=== PATIENT | female | born 1990 | race Caucasian/White ===

== ENCOUNTER 2020-07-10 15:29 | Inpatient (IN) | payer OTHER ==
--- NOTE | 2020-07-10 16:02 | BHS.RME ---
"Substance Use & Tx History - Substance Use History Heroin Substance amount: 3-4 bags Frequency of use: Daily Substance route: Inhalation (ex: sniffing or snorting) Date of Last Use: 07/10/20 Cocaine-Crack Substance amount: $20-30 Frequency of use: Daily Substance route: Smoking Date of Last Use: 07/03/20 Other Opiates/Synthetics Substance amount: Percocet 10 mg x 10-20 tabs Frequency of use: Daily Substance route: Oral Date of Last Use: 07/07/20 - Last Treatment Date of last treatment: [facility] 2 y ago Where was last treatment: Detox Physical/Psych/Mental Status - Behavior General Behavior: Increased activity (restlessness, agitation) ([facility] Sameera Brown, 1990 Search Date: 07/10/2020 16:03:52 PM The Drug Utilization Report below displays all of the controlled substance prescriptions, if any, that your patient has filled in the last twelve months. The information displayed on this report is compiled from pharmacy submissions to the Department, and accurately reflects the information as submitted by the pharmacies. This report was requested by: Audra Potter | Reference #: [id number] Others' Prescriptions Patient Name: Sameera Brown Date: 1990 Address: [address] [place] [address] Sex: Female Rx Written Rx Dispensed Drug Quantity Days Supply Prescriber Name 02/27/2020 02/27/2020 oxycodone hcl 5 mg tablet 9 3 Velasquez Montano MD) Eye Contact: Normal - Cooperativeness Cooperativeness: Cooperative - Thinking Thought Processes: Tight Thought content: Future oriented - Physical Health Problems Is patient presently having any pain?: No Does patient presently have any injuries (include location): No Does patient currently have a fever: No"
[2020-07-10 17:48] VITALS: BMI 20.5
--- NOTE | 2020-07-10 17:59 | HP ---
CIWA Score - Admission Criteria OASAS Guidelines: Admission for Medically Managed Detox: Requires at least one of the followin. CIWA greater than 12 2. Seizures within the past 24 hours 3. Delirium tremens within the past 24 hours 4. Hallucinations within the past 24 hours 5. Acute intervention needed for co occurring medical disorder 6. Acute intervention needed for co occurring psychiatric disorder 7. Severe withdrawal that cannot be handled at a lower level of care (continued vomiting, continued diarrhea, abnormal vital signs) requiring intravenous medication and/or fluids 8. Admitting History and Physical - Smoking History Smoking history: Never smoked Admission ROS [facility] Allergies/Adverse Reactions: Allergies Allergy/AdvReac Type Severity Reaction Status Date / Time Penicillins Allergy Verified 07/10/20 17:37 History of Present Illness: 29 y.o female requesting rehab from cocaine use , currently in [facility] 150 mg daily since 1 yr ago . First used 3 yrs ago cocaine - via smoking , latest use " a few days ago " , prior use daily since September 2019 cannabis - daily since age 12 . tobacco : 10/21 ppd PMHx :sickle cell disease ( and 5 yr old son ) [facility] April 2020 latest crisis, hematology @ [address] , DDD L-spine , MDD ( denies SI / HI ) , anxiety , bipolar d/o . psych : olanzapine, mirtazapine, seroquel, benadryl , lexapro rx by psychiatrist @ [facility] , did not bring meds . LMP 6 yrs ago, Norplant SHx : lives w/ and 5-yr old son in own residence . Unemployed , SSD . Exam Limitations: No Limitations - Review of Systems Constitutional: Loss of Appetite, Unintentional Wgt. Loss (20 lbs in < 1 month) EENT: reports: No Symptoms Reported Respiratory: reports: No Symptoms reported Cardiac: reports: No Symptoms Reported GI: reports: Constipated (x 1 week), Poor Appetite : reports: No Symptoms Reported, Other (hesitancy) Musculoskeletal: reports: Back Pain (chronic , reports RFA q 3 months), Joint Pain (generalized pain) Integumentary: reports: No Symptoms Reported Neuro: reports: No Symptoms reported Endocrine: reports: No Symptoms Reported Hematology: reports: See HPI, Other (SCD) Psychiatric: reports: Orientated x3, Agitated, Depressed Patient History - Patient Medical History Hx Asthma: No Hx Chronic Obstructive Pulmonary Disease (COPD): No Hx Cardiac Disorders: No Hx Hypertension: No Hx Seizures: No Hx Diabetes: No Hx Gastrointestinal Disorders: Yes Hx Sexually Transmitted Disorders: No Hx Renal Disease (ESRD): No Hx Depression: Yes - Patient Surgical History Past Surgical History: Yes Hx Abdominal Surgery: Yes (GASTRIC SLEEVE IN 2013) - Smoking Cessation Smoking history: Never smoked - Substances abused Cocaine Substance route: Inhalation Frequency: 3-6 times per week Amount used: 5 to 10 bags Age of first use: 26 Date of last use: 07/07/20 Heroin Substance route: Inhalation Frequency: Daily Amount used: 2 bags Age of first use: 29 Date of last use: 07/10/20 Admission Physical Exam BHS - Vital Signs Vital Signs: Vital Signs - 24 hr 07/10/20 17:42 Temperature 97.6 F Pulse Rate 106 H Respiratory 12 Rate Blood Pressure 107/76 - Physical General Appearance: Yes: No Apparent Distress HEENTM: Yes: EOMI, Hearing grossly Normal, Normocephalic, Normal Voice Respiratory: Yes: Chest Non-Tender, Lungs Clear, Normal Breath Sounds, No Respiratory Distress, No Accessory Muscle Use Neck: Yes: No masses,lesions,Nodules, Trachea in good position Cardiology: Yes: Regular Rhythm, Regular Rate, S1, S2 Abdominal: Yes: Normal Bowel Sounds, Protuberent, Distended, Tenderness (LLQ) Musculoskeletal: Yes: Gait Steady Extremities: Yes: Normal Range of Motion, Non-Tender Neurological: Yes: Alert, Motor Strength 5/5, Depressed Affect Integumentary: Yes: Warm - Diagnostic (1) Opioid dependence on agonist therapy Current Visit: Yes Status: Chronic (2) Cannabis dependence Current Visit: Yes Status: Chronic (3) History of crack cocaine use Current Visit: Yes Status: Suspected (4) Nicotine use disorder Current Visit: Yes Status: Chronic Breathalyzer - Breathalyzer Breathalyzer: 0 Urine Drug Screen - Test Device Lot number: [id number] Expiration date: 05/21/22 - Control Is test valid?: Yes - Results Drug screen NEGATIVE: No Urine drug screen results: THC-Marijuana, MTD-Methadone Inpatient Rehab Admission - Rehab Decision to Admit Inpatient rehab admission?: Yes - Initial Determination Are CD services needed?: Yes Free of communicable disease: Yes Not in need of hospitalization: Yes - Rehab Admission Criteria Previous failed treatment: No Poor recovery environment: No Comorbidities: No Lacks judgement: Yes Patient is meeting Inpatient Rehab admission criteria:: Yes
[2020-07-10] MEDS ORDERED: MAGNESIUM HYDROX 2400MG/30ML ORAL SUSPENSION 30 ML CUP PO PRN (18:19)
[2020-07-10] MEDS ORDERED: LOPERAMIDE HCL 2 MG CAPSULE PO PRN (18:19)
[2020-07-10] MEDS ORDERED: MAGNESIUM CITRATE 300 ML BOTTLE PO PRN (18:19)
[2020-07-10] MEDS ORDERED: MAG HYDROX/AL HYDROX/SIMETH 30 ML UNIT-DOSE CUP PO PRN (18:19)
[2020-07-10] MEDS ORDERED: P-EPHED 60MG/TRIPROLIDI 2.5MG TABLET PO PRN (18:19)
[2020-07-10] MEDS ORDERED: guaiFENesin 200 MG/10 ML 10 ML UNIT-DOSE CUPS PO PRN (18:19)
[2020-07-10] MEDS ORDERED: diphenhydrAMINE HCL 50 MG CAPSULE PO ONE (18:21)
[2020-07-10] MEDS ORDERED: GABAPENTIN 400 MG CAPSULE PO ONE (18:22)
[2020-07-10] MEDS ORDERED: TUBERCULIN PPD 5 TU/0.1ML VIAL ID ONE (19:26)
--- OUTSIDE RECORDS SUMMARY | 2020-07-10 19:57 | XMS ---
:1990 [facility] Support Name Relationship Address Phone UE Unavailable Unavailable Unavailable DAKSHA TALAMANTES [address] [phone] [place] [address] Re-disclosure Warning The records that you are about to access may contain information from federally- assisted alcohol or drug abuse programs. If such information is present, then the following federally mandated warning applies: This information has been disclosed to you from records protected by federal confidentiality rules (42 CFR part 2). The federal rules prohibit you from making any further disclosure of this information unless further disclosure is expressly permitted by the written consent of the person to whom it pertains or as otherwise permitted by 42 CFR part 2. A general authorization for the release of medical or other information is NOT sufficient for this purpose. The Federal rules restrict any use of the information to criminally investigate or prosecute any alcohol or drug abuse patient.The records that you are about to access may contain highly sensitive health information, the redisclosure of which is protected by Article 27-F of the [facility] Public Health law. If you continue you may haveaccess to information: Regarding HIV / AIDS; Provided by facilities licensed or operated by the [facility] Office of Mental Health; or Provided by the [facility] Office for People With Developmental Disabilities. If such information is present, then the following [facility] mandated warning applies: This information has been disclosed to you from confidential records which are protected by state law. State law prohibits you from making any further disclosure of this information without the specific written consent of the person to whom it pertains, or as otherwise permitted by law. Any unauthorized further disclosure in violation of state law may result in a fine or assisted sentence or both. A general authorization for the release of medical or other information is NOT sufficient authorization for further disclosure. Insurance Providers Payer name Policy type Policy ID Covered Covered democrat's Policy P nolvia / Coverage democrat ID relationship to Marte Inf ormation type marte MEDICAID [id number] SP [id number]
[2020-07-10] MEDS: hydrOXYzine PAMOATE 25 MG CAPSULE (FP) PO PRN (20:08)
[2020-07-10] MEDS: ACETAMINOPHEN 325 MG TABLET (FP) PO PRN (20:34)
[2020-07-10] MEDS: THIAMINE HCL 100 MG TABLET (FP) PO SCH (21:31)
[2020-07-10] MEDS ORDERED: DOCUSATE SODIUM 100 MG CAPSULE (FP) PO SCH (22:00)
[2020-07-10] MEDS ORDERED: MELATONIN 5 MG TABLETS PO SCH (22:00)
[2020-07-11] MEDS ORDERED: NAPROXEN 500 MG TABLET PO PRN (08:41)
[2020-07-11] MEDS ORDERED: GABAPENTIN 400 MG CAPSULE PO PRN (08:41)
[2020-07-11] MEDS ORDERED: METHADONE HCL 10 MG TABLET PO SCH (08:45)
[2020-07-11] MEDS ORDERED: METHADONE HCL 40 MG DISPERSABLE TABLET ONE (09:00)
[2020-07-11] MEDS ORDERED: METHADONE HCL 10 MG TABLET ONE (09:01)
[2020-07-11] MEDS: METHADONE 120 MG, METHADONE 30 MG PO SCH (09:23)
[2020-07-11] MEDS: PRENATAL VITAMINS W/ FOLIC ACID TABLET (FP) PO SCH (09:24)
[2020-07-11] MEDS: hydrOXYzine PAMOATE 25 MG CAPSULE (FP) PO PRN ×2 (09:24→18:36)
[2020-07-11 10:54] LABS: HEMATOCRIT 30.5 % (32.4-45.2); HEMOGLOBIN 9.2 GM/dL (10.7-15.3); MCHC 30.3 g/dl (32.0-36.0); MEAN CELL VOLUME 63.4 fl (80-96); PLATELET COUNT 380 K/MM3 (134-434); RDW 21.9 % (11.6-15.6); WHITE BLOOD COUNT 6.6 K/mm3 (4.0-10.0)
[2020-07-11 11:02] LABS: ALBUMIN 3.4 g/dl (3.4-5.0); BILIRUBIN,TOTAL 0.4 mg/dL (0.2-1); BLOOD UREA NITROGEN 11.7 mg/dL (7-18); CALCIUM 9.1 mg/dL (8.5-10.1); CREATININE 0.9 mg/dL (0.55-1.3); POTASSIUM 4.8 mmol/L (3.5-5.1); TOT PROT 7.3 g/dl (6.4-8.2)
[2020-07-11 11:04] LABS: MCH 19.2 pg (25.7-33.7)
[2020-07-11 11:19] LABS: SICKLE CELL SCREEN NEGATIVE (NEGATIVE)
[2020-07-11] MEDS ORDERED: PNEUMOCOCCAL 23 VACCINE 0.5 ML VIAL IM ONE (12:00)
[2020-07-11] MEDS ORDERED: PNEUMOC 13-VAL CONJ-DIP CRM/PF 0.5 ML DISP.SYRIN IM ONE (12:00)
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
[2020-07-11 14:34] LABS: EPI CELLS >36 /uL (0-25.1); HYALINE CASTS 1 /uL (0-3.1); URINE APPEARANCE CLEAR; URINE BACTERIA 814 /uL (0-1359); URINE BILIRUBIN NEGATIVE (NEGATIVE); URINE COLOR YELLOW; URINE GLUCOSE (UA) NEGATIVE (NEGATIVE); URINE KETONE NEGATIVE (NEGATIVE); URINE LEUK ESTERASE 1+ (NEGATIVE); URINE NITRITE NEGATIVE (NEGATIVE); URINE PROTEIN NEGATIVE (NEGATIVE); URINE RBC 1 /uL (0-23.9); URINE UROBILINOGEN 0.2 mg/dL (0.2-1.0); URINE WBC 15 /uL (0-25.8)
[2020-07-11] MEDS: ESCITALOPRAM OXALATE 20 MG TABLET PO SCH (14:51)
[2020-07-11] MEDS: ACETAMINOPHEN 325 MG TABLET (FP) PO PRN (19:15)
[2020-07-11] MEDS: THIAMINE HCL 100 MG TABLET (FP) PO SCH (21:19)
[2020-07-11] MEDS: MIRTAZAPINE 30 MG TABLET PO SCH (21:20)
[2020-07-11] MEDS: MELATONIN 5 MG TABLETS PO SCH (21:20)
[2020-07-11] MEDS: OLANZapine 10 MG TABLET PO SCH (21:20)
[2020-07-11] MEDS: QUEtiapine FUMARATE 100 MG TABLET (FP) PO SCH (21:20)
[2020-07-12] MEDS ORDERED: METHADONE HCL 40 MG DISPERSABLE TABLET ONE (03:09)
[2020-07-12] MEDS ORDERED: METHADONE HCL 10 MG TABLET ONE (03:10)
[2020-07-12] MEDS: METHADONE 120 MG, METHADONE 30 MG PO SCH (06:02)
[2020-07-12] MEDS: PRENATAL VITAMINS W/ FOLIC ACID TABLET (FP) PO SCH (09:30)
[2020-07-12] MEDS: ESCITALOPRAM OXALATE 20 MG TABLET PO SCH (09:30)
--- NOTE | 2020-07-12 09:51 | PN ---
[facility] Progress Note Note: Patient seen for c/o dysuria, urinary frequency and retention. States after having multiple abdominal surgeries she has to "push urine out". Patient denies fever, pelvic and back pain. Vital Signs Temperature 97.1 F L 07/12/20 06:01 Pulse Rate 99 H 07/12/20 06:01 Respiratory Rate 16 07/12/20 06:01 Blood Pressure 122/84 07/12/20 06:01 O2 Sat by Pulse Oximetry (%) 95 07/12/20 06:01 Laboratory Tests 07/10/20 07/10/20 07/11/20 16:10 17:33 07:50 WBC 6.6 RBC 4.80 Hgb 9.2 L Hct 30.5 L MCV 63.4 L MCH 19.2 L MCHC 30.3 L RDW 21.9 H Plt Count 380 MPV 9.0 Sickle Cell Screen Negative Sodium Potassium Chloride Carbon Dioxide Anion Gap BUN Creatinine Est GFR (CKD-EPI)AfAm Est GFR (CKD-EPI)NonAf Random Glucose Calcium Total Bilirubin AST ALT Alkaline Phosphatase Total Protein Albumin Urine Color Urine Appearance Urine pH Ur Specific Court[place] Urine Protein Urine Glucose (UA) Urine Ketones Urine Blood Urine Nitrite Urine Bilirubin Urine Urobilinogen Ur Leukocyte Esterase Urine WBC (Auto) Urine RBC (Auto) Urine Casts (Auto) U Epithel Cells (Auto) Urine Bacteria (Auto) POC Urine HCG, Qual Negative Syphilis Serology SARS-CoV-2 (PCR) Negative 07/11/20 07/11/20 07/11/20 07:50 07:50 09:45 WBC RBC Hgb Hct MCV MCH MCHC RDW Plt Count MPV Sickle Cell Screen Sodium 140 Potassium 4.8 Chloride 104 Carbon Dioxide 29 Anion Gap 7 L BUN 11.7 Creatinine 0.9 Est GFR (CKD-EPI)AfAm 98.75 Est GFR (CKD-EPI)NonAf 85.20 Random Glucose 160 H Calcium 9.1 Total Bilirubin 0.4 AST 22 ALT 15 Alkaline Phosphatase 64 Total Protein 7.3 Albumin 3.4 Urine Color Yellow Urine Appearance Clear Urine pH 7.0 Ur Specific Court[place] 1.012 Urine Protein Negative Urine Glucose (UA) Negative Urine Ketones Negative Urine Blood Negative Urine Nitrite Negative Urine Bilirubin Negative Urine Urobilinogen 0.2 Ur Leukocyte Esterase 1+ H Urine WBC (Auto) 15 Urine RBC (Auto) 1 Urine Casts (Auto) 1 U Epithel Cells (Auto) >36 Urine Bacteria (Auto) 814 POC Urine HCG, Qual Syphilis Serology Non-reactive SARS-CoV-2 (PCR) PE: alert and oriented x 3 skin warm and dry In nad gi nt, nd, flat neg cvat ext full rom, amb ad christ no tremors A/P: Dysuria Urinary retention UA appreciated will treat with Bactrim/Pyridium due to symptoms oral fluids encouraged continue to monitor clinically
[2020-07-12] MEDS: SULFAMETHOXAZOLE/TRIMETHOPRIM 800MG/160MG D.S. TABLET PO SCH ×2 (10:38→21:27)
[2020-07-12] MEDS: PHENAZOPYRIDINE HCL 100 MG TABLET (FP) PO SCH ×2 (14:49→21:25)
[2020-07-12] MEDS: hydrOXYzine PAMOATE 25 MG CAPSULE (FP) PO PRN ×2 (16:22→21:27)
[2020-07-12] MEDS: QUEtiapine FUMARATE 100 MG TABLET (FP) PO SCH (21:26)
[2020-07-12] MEDS: THIAMINE HCL 100 MG TABLET (FP) PO SCH (21:26)
[2020-07-12] MEDS: OLANZapine 10 MG TABLET PO SCH (21:26)
[2020-07-12] MEDS: GABAPENTIN 400 MG CAPSULE PO PRN (21:26)
[2020-07-12] MEDS: MELATONIN 5 MG TABLETS PO SCH (21:27)
[2020-07-12] MEDS: MIRTAZAPINE 30 MG TABLET PO SCH (21:27)
[2020-07-13] MEDS ORDERED: METHADONE HCL 10 MG TABLET ONE (05:27)
[2020-07-13] MEDS ORDERED: METHADONE HCL 40 MG DISPERSABLE TABLET ONE (05:27)
[2020-07-13] MEDS: METHADONE 120 MG, METHADONE 30 MG PO SCH (06:22)
[2020-07-13] MEDS: hydrOXYzine PAMOATE 25 MG CAPSULE (FP) PO PRN ×3 (06:32→17:25)
[2020-07-13] MEDS: PHENAZOPYRIDINE HCL 100 MG TABLET (FP) PO SCH ×3 (09:40→22:42)
[2020-07-13] MEDS: ESCITALOPRAM OXALATE 20 MG TABLET PO SCH (09:40)
[2020-07-13] MEDS: SULFAMETHOXAZOLE/TRIMETHOPRIM 800MG/160MG D.S. TABLET PO SCH ×2 (09:40→21:42)
[2020-07-13] MEDS: PRENATAL VITAMINS W/ FOLIC ACID TABLET (FP) PO SCH (09:40)
[2020-07-13] MEDS: MIRTAZAPINE 30 MG TABLET PO SCH (21:42)
[2020-07-13] MEDS: QUEtiapine FUMARATE 100 MG TABLET (FP) PO SCH (21:42)
[2020-07-13] MEDS: THIAMINE HCL 100 MG TABLET (FP) PO SCH (21:42)
[2020-07-13] MEDS: OLANZapine 10 MG TABLET PO SCH (21:42)
[2020-07-13] MEDS: MELATONIN 5 MG TABLETS PO SCH (21:43)
[2020-07-13] MEDS: GABAPENTIN 400 MG CAPSULE PO PRN (22:42)
[2020-07-14] MEDS ORDERED: METHADONE HCL 40 MG DISPERSABLE TABLET ONE (05:33)
[2020-07-14] MEDS ORDERED: METHADONE HCL 10 MG TABLET ONE (05:33)
[2020-07-14] MEDS: hydrOXYzine PAMOATE 25 MG CAPSULE (FP) PO PRN ×4 (06:41→21:16)
[2020-07-14] MEDS: METHADONE 120 MG, METHADONE 30 MG PO SCH (06:41)
[2020-07-14] MEDS ORDERED: PT OWN MED DRAWER 7, Y5N ONE ×2 (09:01→21:03)
[2020-07-14] MEDS: PHENAZOPYRIDINE HCL 100 MG TABLET (FP) PO SCH (09:29)
[2020-07-14] MEDS: ESCITALOPRAM OXALATE 20 MG TABLET PO SCH (10:29)
[2020-07-14] MEDS: SULFAMETHOXAZOLE/TRIMETHOPRIM 800MG/160MG D.S. TABLET PO SCH ×2 (10:29→21:15)
[2020-07-14] MEDS: PRENATAL VITAMINS W/ FOLIC ACID TABLET (FP) PO SCH (10:34)
[2020-07-14] MEDS: GABAPENTIN 400 MG CAPSULE PO PRN (18:05)
[2020-07-14] MEDS: QUEtiapine FUMARATE 100 MG TABLET (FP) PO SCH (21:15)
[2020-07-14] MEDS: OLANZapine 10 MG TABLET PO SCH (21:15)
[2020-07-14] MEDS: THIAMINE HCL 100 MG TABLET (FP) PO SCH (21:16)
[2020-07-14] MEDS: MELATONIN 5 MG TABLETS PO SCH (21:16)
[2020-07-14] MEDS: MIRTAZAPINE 30 MG TABLET PO SCH (21:16)
[2020-07-15] MEDS ORDERED: METHADONE HCL 10 MG TABLET ONE (03:26)
[2020-07-15] MEDS ORDERED: METHADONE HCL 40 MG DISPERSABLE TABLET ONE (03:26)
[2020-07-15] MEDS: METHADONE 120 MG, METHADONE 30 MG PO SCH (06:03)
[2020-07-15] MEDS: NAPROXEN 500 MG TABLET PO PRN ×2 (06:03→19:27)
[2020-07-15] MEDS: BENZOCAINE 20 % GEL TUBE MM PRN (06:03)
[2020-07-15] MEDS: hydrOXYzine PAMOATE 25 MG CAPSULE (FP) PO PRN ×2 (06:03→10:17)
[2020-07-15] MEDS ORDERED: ESCITALOPRAM OXALATE 10 MG TABLET ONE (08:52)
[2020-07-15] MEDS: ESCITALOPRAM OXALATE 20 MG TABLET PO SCH (10:17)
[2020-07-15] MEDS: PRENATAL VITAMINS W/ FOLIC ACID TABLET (FP) PO SCH (10:17)
[2020-07-15] MEDS: GABAPENTIN 400 MG CAPSULE PO PRN (10:19)
[2020-07-15] MEDS ORDERED: PNEUMOC 13-VAL CONJ-DIP CRM/PF 0.5 ML DISP.SYRIN IM ONE (12:00)
--- NOTE | 2020-07-15 15:08 | PN ---
S Progress Note Note: Patient reports feeling anxious despite taking Vistaril 25 mg po Q 4hrs prn. Requests to increase Vistaril dosage to 50 mg po Q4 hrs prn.
[2020-07-15] MEDS: hydrOXYzine PAMOATE 50 MG CAPSULE (FP) PO PRN (15:52)
[2020-07-15] MEDS: OLANZapine 10 MG TABLET PO SCH (21:01)
[2020-07-15] MEDS: THIAMINE HCL 100 MG TABLET (FP) PO SCH (21:01)
[2020-07-15] MEDS: MIRTAZAPINE 30 MG TABLET PO SCH (21:01)
[2020-07-15] MEDS: QUEtiapine FUMARATE 100 MG TABLET (FP) PO SCH (21:02)
[2020-07-15] MEDS: MELATONIN 5 MG TABLETS PO SCH (21:02)
[2020-07-16] MEDS ORDERED: METHADONE HCL 10 MG TABLET ONE (03:21)
[2020-07-16] MEDS ORDERED: METHADONE HCL 40 MG DISPERSABLE TABLET ONE (03:21)
[2020-07-16] MEDS: METHADONE 120 MG, METHADONE 30 MG PO SCH (06:01)
[2020-07-16] MEDS: hydrOXYzine PAMOATE 50 MG CAPSULE (FP) PO PRN ×2 (06:01→09:52)
[2020-07-16] MEDS: PRENATAL VITAMINS W/ FOLIC ACID TABLET (FP) PO SCH (09:52)
[2020-07-16] MEDS: ESCITALOPRAM OXALATE 20 MG TABLET PO SCH (09:52)
--- NOTE | 2020-07-16 14:01 | PN ---
[facility] Progress Note Note: Patient reports feeling anxious despite taking Seroquel 100 mg/hs and Vistaril 50 mg po nQ 4hrs prn. She requests to take Seroquel 100 mg/bid. Seroquel dosage is increased to 100 mg/bid
[2020-07-16] MEDS: QUEtiapine FUMARATE 100 MG TABLET (FP) PO SCH ×3 (14:15→21:02)
[2020-07-16] MEDS: GABAPENTIN 400 MG CAPSULE PO PRN ×2 (15:38→21:24)
[2020-07-16] MEDS: MELATONIN 5 MG TABLETS PO SCH (21:01)
[2020-07-16] MEDS: THIAMINE HCL 100 MG TABLET (FP) PO SCH (21:01)
[2020-07-16] MEDS: MIRTAZAPINE 30 MG TABLET PO SCH (21:02)
[2020-07-16] MEDS: OLANZapine 10 MG TABLET PO SCH (21:03)
[2020-07-17] MEDS ORDERED: METHADONE HCL 10 MG TABLET ONE (03:13)
[2020-07-17] MEDS ORDERED: METHADONE HCL 40 MG DISPERSABLE TABLET ONE (03:13)
[2020-07-17] MEDS: hydrOXYzine PAMOATE 50 MG CAPSULE (FP) PO PRN ×4 (06:23→19:09)
[2020-07-17] MEDS: METHADONE 120 MG, METHADONE 30 MG PO SCH (06:23)
[2020-07-17] MEDS: PRENATAL VITAMINS W/ FOLIC ACID TABLET (FP) PO SCH (09:55)
[2020-07-17] MEDS: GABAPENTIN 400 MG CAPSULE PO PRN ×3 (09:55→19:09)
[2020-07-17] MEDS: ESCITALOPRAM OXALATE 20 MG TABLET PO SCH (09:55)
[2020-07-17] MEDS: QUEtiapine FUMARATE 100 MG TABLET (FP) PO SCH ×3 (09:56→21:07)
[2020-07-17] MEDS: NAPROXEN 500 MG TABLET PO PRN (15:51)
[2020-07-17] MEDS: OLANZapine 10 MG TABLET PO SCH (21:06)
[2020-07-17] MEDS: THIAMINE HCL 100 MG TABLET (FP) PO SCH (21:06)
[2020-07-17] MEDS: MIRTAZAPINE 30 MG TABLET PO SCH (21:06)
[2020-07-17] MEDS: MELATONIN 5 MG TABLETS PO SCH (21:08)
[2020-07-18] MEDS ORDERED: METHADONE HCL 40 MG DISPERSABLE TABLET ONE (05:25)
[2020-07-18] MEDS ORDERED: METHADONE HCL 10 MG TABLET ONE (05:26)
[2020-07-18] MEDS: METHADONE 120 MG, METHADONE 30 MG PO SCH (06:14)
[2020-07-18] MEDS: GABAPENTIN 400 MG CAPSULE PO PRN ×2 (10:17→17:04)
[2020-07-18] MEDS: PRENATAL VITAMINS W/ FOLIC ACID TABLET (FP) PO SCH (10:17)
[2020-07-18] MEDS: hydrOXYzine PAMOATE 50 MG CAPSULE (FP) PO PRN ×3 (10:18→21:01)
[2020-07-18] MEDS: ESCITALOPRAM OXALATE 20 MG TABLET PO SCH (10:18)
[2020-07-18] MEDS: QUEtiapine FUMARATE 100 MG TABLET (FP) PO SCH ×2 (10:18→21:01)
[2020-07-18] MEDS ORDERED: MIRTAZAPINE 15 MG TABLET (FP) ONE (19:13)
[2020-07-18] MEDS: THIAMINE HCL 100 MG TABLET (FP) PO SCH (21:01)
[2020-07-18] MEDS: MIRTAZAPINE 30 MG TABLET PO SCH (21:01)
[2020-07-18] MEDS: OLANZapine 10 MG TABLET PO SCH (21:01)
[2020-07-18] MEDS: MELATONIN 5 MG TABLETS PO SCH (21:02)
[2020-07-19] MEDS ORDERED: METHADONE HCL 10 MG TABLET ONE (06:04)
[2020-07-19] MEDS ORDERED: METHADONE HCL 40 MG DISPERSABLE TABLET ONE (06:04)
[2020-07-19] MEDS: METHADONE 120 MG, METHADONE 30 MG PO SCH (06:43)
[2020-07-19] MEDS: ESCITALOPRAM OXALATE 20 MG TABLET PO SCH (10:01)
[2020-07-19] MEDS: QUEtiapine FUMARATE 100 MG TABLET (FP) PO SCH ×2 (10:01→21:23)
[2020-07-19] MEDS: PRENATAL VITAMINS W/ FOLIC ACID TABLET (FP) PO SCH (10:01)
[2020-07-19] MEDS ORDERED: ONDANSETRON *ODT* 4 MG TABLET SL PRN (11:08)
--- NOTE | 2020-07-19 11:10 | PN ---
[facility] Progress Note Note: nurse gem called to report patient c/o upset stomach, nausea/vomited this morning and anxiety. Pt taking a nap at this time. Vital Signs - 24 hr 07/18/20 07/18/20 07/19/20 13:24 20:41 06:00 Temperature 97.3 F L Pulse Rate 89 Respiratory 16 Rate Blood Pressure 90/66 O2 Sat by Pulse 99 100 97 Oximetry (%) 07/19/20 09:10 Temperature 98.2 F Pulse Rate 108 H Respiratory 18 Rate Blood Pressure 100/67 O2 Sat by Pulse 97 Oximetry (%) On Vistaril 50 mg po Q4h prn for anxiety when awake Increase po fluids as tolerated Zofran odt prn as directed for n/v. follow up with pt's progress.
[2020-07-19] MEDS: GABAPENTIN 400 MG CAPSULE PO PRN ×2 (12:42→21:23)
[2020-07-19] MEDS: hydrOXYzine PAMOATE 50 MG CAPSULE (FP) PO PRN (12:43)
[2020-07-19] MEDS ORDERED: PT OWN MED DRAWER 7, Y5N ONE (17:42)
[2020-07-19] MEDS: NAPROXEN 500 MG TABLET PO PRN (17:43)
[2020-07-19] MEDS: BENZOCAINE 20 % GEL TUBE MM PRN (17:44)
[2020-07-19] MEDS ORDERED: MIRTAZAPINE 15 MG TABLET (FP) ONE (19:51)
[2020-07-19] MEDS: OLANZapine 10 MG TABLET PO SCH (21:23)
[2020-07-19] MEDS: THIAMINE HCL 100 MG TABLET (FP) PO SCH (21:24)
[2020-07-19] MEDS: MELATONIN 5 MG TABLETS PO SCH (21:24)
[2020-07-19] MEDS: MIRTAZAPINE 30 MG TABLET PO SCH (21:24)
[2020-07-20] MEDS ORDERED: METHADONE HCL 10 MG TABLET ONE (03:14)
[2020-07-20] MEDS ORDERED: METHADONE HCL 40 MG DISPERSABLE TABLET ONE (03:14)
[2020-07-20] MEDS: METHADONE 120 MG, METHADONE 30 MG PO SCH (06:49)
[2020-07-20] MEDS: hydrOXYzine PAMOATE 50 MG CAPSULE (FP) PO PRN ×3 (06:52→21:25)
[2020-07-20] MEDS: PRENATAL VITAMINS W/ FOLIC ACID TABLET (FP) PO SCH (09:19)
[2020-07-20] MEDS: QUEtiapine FUMARATE 100 MG TABLET (FP) PO SCH ×2 (09:19→21:21)
[2020-07-20] MEDS: ESCITALOPRAM OXALATE 20 MG TABLET PO SCH (09:19)
[2020-07-20] MEDS: GABAPENTIN 400 MG CAPSULE PO PRN ×2 (17:45→21:26)
[2020-07-20] MEDS ORDERED: MIRTAZAPINE 15 MG TABLET (FP) ONE (21:02)
[2020-07-20] MEDS: OLANZapine 10 MG TABLET PO SCH (21:21)
[2020-07-20] MEDS: THIAMINE HCL 100 MG TABLET (FP) PO SCH (21:21)
[2020-07-20] MEDS: MELATONIN 5 MG TABLETS PO SCH (21:21)
[2020-07-20] MEDS: MIRTAZAPINE 30 MG TABLET PO SCH (21:22)
[2020-07-21] MEDS ORDERED: METHADONE HCL 10 MG TABLET ONE (03:12)
[2020-07-21] MEDS ORDERED: METHADONE HCL 40 MG DISPERSABLE TABLET ONE (03:12)
[2020-07-21] MEDS: METHADONE 120 MG, METHADONE 30 MG PO SCH (06:32)
[2020-07-21] MEDS: PRENATAL VITAMINS W/ FOLIC ACID TABLET (FP) PO SCH (09:38)
[2020-07-21] MEDS: ESCITALOPRAM OXALATE 20 MG TABLET PO SCH (09:38)
[2020-07-21] MEDS: QUEtiapine FUMARATE 100 MG TABLET (FP) PO SCH ×2 (09:38→21:08)
[2020-07-21] MEDS: GABAPENTIN 400 MG CAPSULE PO PRN ×2 (09:40→17:57)
[2020-07-21] MEDS ORDERED: PT OWN MED DRAWER 7, Y5N ONE (12:47)
[2020-07-21] MEDS: NAPROXEN 500 MG TABLET PO PRN ×2 (12:48→17:57)
[2020-07-21] MEDS: ACETAMINOPHEN 325 MG TABLET (FP) PO PRN ×2 (14:53→21:30)
[2020-07-21] MEDS: hydrOXYzine PAMOATE 50 MG CAPSULE (FP) PO PRN (14:53)
[2020-07-21] MEDS: BENZOCAINE 20 % GEL TUBE MM PRN (14:54)
[2020-07-21] MEDS: OLANZapine 10 MG TABLET PO SCH (21:07)
[2020-07-21] MEDS: THIAMINE HCL 100 MG TABLET (FP) PO SCH (21:08)
[2020-07-21] MEDS: diphenhydrAMINE HCL 50 MG CAPSULE PO PRN (21:09)
[2020-07-21] MEDS: MELATONIN 5 MG TABLETS PO SCH (21:09)
[2020-07-21] MEDS: MIRTAZAPINE 30 MG TABLET PO SCH (21:09)
[2020-07-22] MEDS ORDERED: METHADONE HCL 40 MG DISPERSABLE TABLET ONE (03:18)
[2020-07-22] MEDS ORDERED: METHADONE HCL 10 MG TABLET ONE (03:18)
[2020-07-22] MEDS: ACETAMINOPHEN 325 MG TABLET (FP) PO PRN ×2 (06:44→18:14)
[2020-07-22] MEDS: METHADONE 120 MG, METHADONE 30 MG PO SCH (06:45)
[2020-07-22] MEDS: BENZOCAINE 20 % GEL TUBE MM PRN (08:57)
[2020-07-22] MEDS ORDERED: PT OWN MED DRAWER 7, Y5N ONE ×3 (08:58→23:12)
[2020-07-22] MEDS: ESCITALOPRAM OXALATE 20 MG TABLET PO SCH (09:54)
[2020-07-22] MEDS: PRENATAL VITAMINS W/ FOLIC ACID TABLET (FP) PO SCH (09:54)
[2020-07-22] MEDS: QUEtiapine FUMARATE 100 MG TABLET (FP) PO SCH ×2 (09:54→21:05)
[2020-07-22] MEDS: NAPROXEN 500 MG TABLET PO PRN ×2 (09:56→16:32)
[2020-07-22] MEDS: GABAPENTIN 400 MG CAPSULE PO PRN ×2 (09:57→16:34)
[2020-07-22] MEDS: hydrOXYzine PAMOATE 50 MG CAPSULE (FP) PO PRN (13:54)
[2020-07-22] MEDS ORDERED: MIRTAZAPINE 15 MG TABLET (FP) ONE (19:08)
[2020-07-22] MEDS: THIAMINE HCL 100 MG TABLET (FP) PO SCH (21:04)
[2020-07-22] MEDS: MIRTAZAPINE 30 MG TABLET PO SCH (21:05)
[2020-07-22] MEDS: OLANZapine 10 MG TABLET PO SCH (21:05)
[2020-07-22] MEDS ORDERED: diphenhydrAMINE HCL 25 MG CAPSULE (FP) PO ONE (21:06)
[2020-07-22] MEDS: MELATONIN 5 MG TABLETS PO SCH (21:06)
[2020-07-22] MEDS: diphenhydrAMINE HCL 50 MG CAPSULE PO PRN (21:07)
[2020-07-23] MEDS ORDERED: METHADONE HCL 40 MG DISPERSABLE TABLET ONE (05:46)
[2020-07-23] MEDS ORDERED: METHADONE HCL 10 MG TABLET ONE (05:46)
[2020-07-23] MEDS: METHADONE 120 MG, METHADONE 30 MG PO SCH (06:08)
[2020-07-23] MEDS ORDERED: PT OWN MED DRAWER 7, Y5N ONE ×2 (09:44→16:35)
[2020-07-23] MEDS: QUEtiapine FUMARATE 100 MG TABLET (FP) PO SCH ×2 (09:45→21:11)
[2020-07-23] MEDS: NAPROXEN 500 MG TABLET PO PRN (09:45)
[2020-07-23] MEDS: BENZOCAINE 20 % GEL TUBE MM PRN (09:45)
[2020-07-23] MEDS: ESCITALOPRAM OXALATE 20 MG TABLET PO SCH (09:45)
[2020-07-23] MEDS: PRENATAL VITAMINS W/ FOLIC ACID TABLET (FP) PO SCH (09:45)
[2020-07-23] MEDS: hydrOXYzine PAMOATE 50 MG CAPSULE (FP) PO PRN (14:27)
[2020-07-23] MEDS: GABAPENTIN 400 MG CAPSULE PO PRN (14:27)
[2020-07-23] MEDS ORDERED: MIRTAZAPINE 15 MG TABLET (FP) ONE (18:47)
[2020-07-23] MEDS: diphenhydrAMINE HCL 50 MG CAPSULE PO PRN (21:11)
[2020-07-23] MEDS: OLANZapine 10 MG TABLET PO SCH (21:11)
[2020-07-23] MEDS: THIAMINE HCL 100 MG TABLET (FP) PO SCH (21:11)
[2020-07-23] MEDS: MIRTAZAPINE 30 MG TABLET PO SCH (21:12)
[2020-07-23] MEDS: MELATONIN 5 MG TABLETS PO SCH (21:12)
[2020-07-24] MEDS ORDERED: METHADONE HCL 40 MG DISPERSABLE TABLET ONE (06:27)
[2020-07-24] MEDS ORDERED: METHADONE HCL 10 MG TABLET ONE (06:27)
[2020-07-24] MEDS: METHADONE 120 MG, METHADONE 30 MG PO SCH (06:33)
[2020-07-24] MEDS: ESCITALOPRAM OXALATE 20 MG TABLET PO SCH (09:36)
[2020-07-24] MEDS: PRENATAL VITAMINS W/ FOLIC ACID TABLET (FP) PO SCH (09:36)
[2020-07-24] MEDS: QUEtiapine FUMARATE 100 MG TABLET (FP) PO SCH ×2 (09:36→21:23)
[2020-07-24] MEDS: GABAPENTIN 400 MG CAPSULE PO PRN (09:37)
[2020-07-24] MEDS ORDERED: PT OWN MED DRAWER 7, Y5N ONE ×2 (14:01→16:22)
[2020-07-24] MEDS: NAPROXEN 500 MG TABLET PO PRN (14:02)
[2020-07-24] MEDS: ACETAMINOPHEN 325 MG TABLET (FP) PO PRN (16:23)
[2020-07-24] MEDS: BENZOCAINE 20 % GEL TUBE MM PRN (16:23)
[2020-07-24] MEDS ORDERED: MIRTAZAPINE 15 MG TABLET (FP) ONE (19:15)
[2020-07-24] MEDS ORDERED: diphenhydrAMINE HCL 25 MG CAPSULE (FP) PO ONE (19:15)
[2020-07-24] MEDS: OLANZapine 10 MG TABLET PO SCH (21:22)
[2020-07-24] MEDS: THIAMINE HCL 100 MG TABLET (FP) PO SCH (21:22)
[2020-07-24] MEDS: MIRTAZAPINE 30 MG TABLET PO SCH (21:24)
[2020-07-24] MEDS: MELATONIN 5 MG TABLETS PO SCH (21:25)
[2020-07-25] MEDS ORDERED: METHADONE HCL 40 MG DISPERSABLE TABLET ONE (03:55)
[2020-07-25] MEDS ORDERED: METHADONE HCL 10 MG TABLET ONE (03:55)
[2020-07-25] MEDS: METHADONE 120 MG, METHADONE 30 MG PO SCH (07:08)
[2020-07-25] MEDS: ESCITALOPRAM OXALATE 20 MG TABLET PO SCH (09:55)
[2020-07-25] MEDS: QUEtiapine FUMARATE 100 MG TABLET (FP) PO SCH ×2 (09:55→21:19)
[2020-07-25] MEDS: PRENATAL VITAMINS W/ FOLIC ACID TABLET (FP) PO SCH (09:55)
[2020-07-25] MEDS: NAPROXEN 500 MG TABLET PO PRN (09:56)
[2020-07-25] MEDS: GABAPENTIN 400 MG CAPSULE PO PRN ×2 (15:55→21:19)
[2020-07-25] MEDS: hydrOXYzine PAMOATE 50 MG CAPSULE (FP) PO PRN (17:05)
[2020-07-25] MEDS: ACETAMINOPHEN 325 MG TABLET (FP) PO PRN (17:05)
[2020-07-25] MEDS ORDERED: MIRTAZAPINE 15 MG TABLET (FP) ONE (19:19)
[2020-07-25] MEDS: THIAMINE HCL 100 MG TABLET (FP) PO SCH (21:16)
[2020-07-25] MEDS: diphenhydrAMINE HCL 50 MG CAPSULE PO PRN (21:17)
[2020-07-25] MEDS: OLANZapine 10 MG TABLET PO SCH (21:17)
[2020-07-25] MEDS: MELATONIN 5 MG TABLETS PO SCH (21:18)
[2020-07-25] MEDS: MIRTAZAPINE 30 MG TABLET PO SCH (21:18)
[2020-07-26] MEDS ORDERED: METHADONE HCL 10 MG TABLET ONE (03:18)
[2020-07-26] MEDS ORDERED: METHADONE HCL 40 MG DISPERSABLE TABLET ONE (03:18)
[2020-07-26] MEDS: METHADONE 120 MG, METHADONE 30 MG PO SCH (06:51)
[2020-07-26] MEDS: PRENATAL VITAMINS W/ FOLIC ACID TABLET (FP) PO SCH (09:53)
[2020-07-26] MEDS: ESCITALOPRAM OXALATE 20 MG TABLET PO SCH (09:53)
[2020-07-26] MEDS: QUEtiapine FUMARATE 100 MG TABLET (FP) PO SCH ×2 (09:53→21:18)
[2020-07-26] MEDS: NAPROXEN 500 MG TABLET PO PRN ×2 (09:54→17:07)
[2020-07-26] MEDS ORDERED: PT OWN MED DRAWER 7, Y5N ONE ×2 (09:54→17:07)
[2020-07-26] MEDS: ACETAMINOPHEN 325 MG TABLET (FP) PO PRN (14:13)
[2020-07-26] MEDS: hydrOXYzine PAMOATE 50 MG CAPSULE (FP) PO PRN ×2 (14:13→22:29)
[2020-07-26] MEDS: BENZOCAINE 20 % GEL TUBE MM PRN (17:07)
[2020-07-26] MEDS ORDERED: MIRTAZAPINE 15 MG TABLET (FP) ONE (19:34)
[2020-07-26] MEDS: THIAMINE HCL 100 MG TABLET (FP) PO SCH (21:17)
[2020-07-26] MEDS: OLANZapine 10 MG TABLET PO SCH (21:18)
[2020-07-26] MEDS: MIRTAZAPINE 30 MG TABLET PO SCH (21:18)
[2020-07-26] MEDS: diphenhydrAMINE HCL 50 MG CAPSULE PO PRN (21:21)
[2020-07-26] MEDS: GABAPENTIN 400 MG CAPSULE PO PRN (21:21)
[2020-07-26] MEDS: MELATONIN 5 MG TABLETS PO SCH (21:21)
[2020-07-27] MEDS ORDERED: METHADONE HCL 10 MG TABLET ONE (05:24)
[2020-07-27] MEDS ORDERED: METHADONE HCL 40 MG DISPERSABLE TABLET ONE (05:24)
[2020-07-27] MEDS: ACETAMINOPHEN 325 MG TABLET (FP) PO PRN ×3 (06:05→17:47)
[2020-07-27] MEDS: METHADONE 120 MG, METHADONE 30 MG PO SCH (06:05)
[2020-07-27] MEDS ORDERED: PT OWN MED DRAWER 7, Y5N ONE ×2 (09:16→15:42)
[2020-07-27] MEDS: ESCITALOPRAM OXALATE 20 MG TABLET PO SCH (09:55)
[2020-07-27] MEDS: PRENATAL VITAMINS W/ FOLIC ACID TABLET (FP) PO SCH (09:55)
[2020-07-27] MEDS: QUEtiapine FUMARATE 100 MG TABLET (FP) PO SCH ×2 (09:55→21:11)
[2020-07-27] MEDS: NAPROXEN 500 MG TABLET PO PRN (09:56)
[2020-07-27] MEDS: BENZOCAINE 20 % GEL TUBE MM PRN ×2 (09:56→15:41)
[2020-07-27] MEDS: GABAPENTIN 400 MG CAPSULE PO PRN ×2 (15:41→21:13)
[2020-07-27] MEDS ORDERED: MIRTAZAPINE 15 MG TABLET (FP) ONE (19:02)
[2020-07-27] MEDS: OLANZapine 10 MG TABLET PO SCH (21:11)
[2020-07-27] MEDS: diphenhydrAMINE HCL 50 MG CAPSULE PO PRN (21:11)
[2020-07-27] MEDS: MELATONIN 5 MG TABLETS PO SCH (21:13)
[2020-07-27] MEDS: THIAMINE HCL 100 MG TABLET (FP) PO SCH (21:13)
[2020-07-27] MEDS: MIRTAZAPINE 30 MG TABLET PO SCH (21:13)
[2020-07-28] MEDS ORDERED: METHADONE HCL 10 MG TABLET ONE (05:25)
[2020-07-28] MEDS ORDERED: METHADONE HCL 40 MG DISPERSABLE TABLET ONE (05:25)
[2020-07-28] MEDS ORDERED: PT OWN MED DRAWER 7, Y5N ONE ×3 (06:19→18:36)
[2020-07-28] MEDS: ACETAMINOPHEN 325 MG TABLET (FP) PO PRN ×3 (06:20→18:36)
[2020-07-28] MEDS: METHADONE 120 MG, METHADONE 30 MG PO SCH (06:20)
[2020-07-28] MEDS: BENZOCAINE 20 % GEL TUBE MM PRN ×2 (06:21→15:01)
[2020-07-28] MEDS: ESCITALOPRAM OXALATE 20 MG TABLET PO SCH (09:35)
[2020-07-28] MEDS: PRENATAL VITAMINS W/ FOLIC ACID TABLET (FP) PO SCH (09:35)
[2020-07-28] MEDS: NAPROXEN 500 MG TABLET PO PRN ×2 (09:36→16:18)
[2020-07-28] MEDS: QUEtiapine FUMARATE 100 MG TABLET (FP) PO SCH ×2 (09:36→21:42)
[2020-07-28] MEDS: GABAPENTIN 400 MG CAPSULE PO PRN (11:57)
[2020-07-28] MEDS: hydrOXYzine PAMOATE 50 MG CAPSULE (FP) PO PRN (11:57)
--- NOTE | 2020-07-28 15:50 | PN ---
Psychiatric Progress Note Vital Signs: Vital Signs Period Temp Pulse Resp BP Sys/Mason Pulse Ox Last 24 Hr 98.0 F 116 18 101/72 98-98 Date of Session: 07/28/20 Chief Complaint:: " I have bad anxiety and I'm not sleeping at night." HPI: Patient admitted to [facility] for cocaine and cannabis use. Consultation ordered due to patient reporting worsening anxiety and difficulty sleeping through the night. ROS: Patient is alert +oriented X3. Current Medications: Active Medications Generic Name Dose Route Start Last Admin Trade Name Freq PRN Reason Stop Dose Admin Acetaminophen 650 mg 07/10/20 18:19 07/28/20 15:00 Tylenol - PO 650 mg Q4H PRN Administration FEVER Al Hydroxide/Mg Hydroxide 30 ml 07/10/20 18:19 07/19/20 09:14 Mylanta Oral Suspension - PO 30 ml Q6H PRN Administration DYSPEPSIA Benzocaine 1 applic 07/11/20 09:40 07/28/20 15:01 Anbesol - MM 1 applic Q6H PRN Administration FOR TOOTHACHE Diphenhydramine HCl 100 mg 07/28/20 22:00 Benadryl - PO HS PRN INSOMNIA Escitalopram Oxalate 20 mg 07/11/20 14:15 07/28/20 09:35 Lexapro - PO 20 mg DAILY NATALIE Administration Gabapentin 800 mg 07/11/20 09:43 07/28/20 11:57 Neurontin - PO 800 mg TID PRN Administration PAIN Guaifenesin 10 ml 07/10/20 18:19 Robitussin - PO Q6H PRN COUGH Hydroxyzine Pamoate 75 mg 07/28/20 15:25 Vistaril - PO Q6H PRN ANXIETY Loperamide HCl 4 mg 07/10/20 18:19 Imodium - PO Q6H PRN DIARRHEA Magnesium Citrate 300 ml 07/10/20 18:19 Citroma - PO Q48H PRN CONSTIPATION Magnesium Hydroxide 30 ml 07/10/20 18:19 Milk Of Magnesia - PO DAILY PRN CONSTIPATION Melatonin 10 mg 07/11/20 09:39 07/27/20 21:13 Melatonin PO 10 mg HS NATALIE Administration Methadone HCl 120 mg/ 150 mg 07/24/20 06:00 07/28/20 06:20 Methadone HCl 30 mg PO 07/31/20 05:59 150 mg DAILY@0600 NATALIE Administration Mirtazapine 30 mg 07/11/20 22:00 07/27/20 21:13 Remeron - PO 30 mg HS NATALIE Administration Naproxen 500 mg 07/11/20 09:42 07/28/20 09:36 Naprosyn - PO 500 mg TID PRN Administration PAIN Olanzapine 30 mg 07/11/20 22:00 07/27/20 21:11 Zyprexa - PO 30 mg HS NATALIE Administration Ondansetron HCl 4 mg 07/19/20 11:08 Zofran Odt - SL Q6H PRN NAUSEA AND/OR VOMITING Multivit/Folic Acid/Iron 1 tab 07/11/20 10:00 07/28/20 09:35 Vitamins (Sjr) - PO 1 tab DAILY NATALIE Administration Pseudoephedrine/Triprolidine 1 combo 07/10/20 18:19 Actifed - PO TID PRN NASAL CONGESTION Quetiapine Fumarate 100 mg 07/16/20 14:00 07/28/20 09:36 Seroquel - PO 100 mg BID NATALIE Administration Thiamine HCl 100 mg 07/10/20 22:00 07/27/20 21:13 Vitamin B1 - PO 100 mg HS NATALIE Administration Medication(s) Change(s): Yes. 1) Will d/c vistaril 50mg q4h + Benadryl 50mg HS PRN for insomnia. 2) Will order Vistaril 75mg q6h for anxiety + Benadryl 75mg HS PRN for insomnia. Current Side Effect: No Lab tests ordered: No Lab tests reviewed: Yes Provider note:: Patient seen by Dr. No. Dr. No's note read and appreciated. Patient reports worsening anxiety and poor sleep despite accepting vistaril 25mg q4h as needed and benadryl 50mg HS PRN. Patient presents as calm, cooperative, alert +oriented X3. Medications reviewed. Medications to be adjusted ( please review section on medication sections). Patient educated on the importance of proper sleep hygiene and on utilizing her coping skills to better manage her anxiety. Patient satisifed and receptive to feedback. Benefits and side effects of medications discussed. Verbal consent given. Total face to face time:: 25 Mental Status Exam - Mental Status Exam Alert and Oriented to: Time, Place, Person Cognitive Function: Good Patient Appearance: Well Groomed Mood: Hopeful Affect: Appropriate Patient Behavior: Appropriate, Cooperative Speech Pattern: Appropriate Voice Loudness: Normal Thought Process: Goal Oriented Thought Disorder: Not Present Hallucinations: Denies Suicidal Ideation: Denies Homicidal Ideation: Denies Insight/Judgement: Poor Sleep: Poorly Appetite: Fair Muscle strength/Tone: Normal Gait/Station: Normal Psychiatric Treatment Plan - Problem List (1) Cannabis dependence Current Visit: Yes (2) Cocaine dependence Current Visit: Yes (3) Substance-induced sleep disorder Current Visit: Yes (4) Bipolar II disorder Current Visit: Yes (5) Opioid dependence on agonist therapy Current Visit: Yes
[2020-07-28] MEDS: hydrOXYzine PAMOATE 25 MG CAPSULE (FP) PO PRN (16:18)
[2020-07-28] MEDS ORDERED: MIRTAZAPINE 15 MG TABLET (FP) ONE (19:21)
[2020-07-28] MEDS: THIAMINE HCL 100 MG TABLET (FP) PO SCH (21:42)
[2020-07-28] MEDS: OLANZapine 10 MG TABLET PO SCH (21:42)
[2020-07-28] MEDS: MELATONIN 5 MG TABLETS PO SCH (21:43)
[2020-07-28] MEDS: MIRTAZAPINE 30 MG TABLET PO SCH (21:43)
[2020-07-28] MEDS: diphenhydrAMINE HCL 25 MG CAPSULE (FP) PO PRN (21:44)
[2020-07-28] MEDS ORDERED: diphenhydrAMINE HCL 50 MG CAPSULE PO PRN ×2 (22:00)
[2020-07-29] MEDS ORDERED: METHADONE HCL 10 MG TABLET ONE (03:24)
[2020-07-29] MEDS ORDERED: METHADONE HCL 40 MG DISPERSABLE TABLET ONE (03:24)
[2020-07-29] MEDS: METHADONE 120 MG, METHADONE 30 MG PO SCH (06:52)
[2020-07-29] MEDS: ACETAMINOPHEN 325 MG TABLET (FP) PO PRN ×3 (07:10→22:14)
[2020-07-29] MEDS ORDERED: PT OWN MED DRAWER 7, Y5N ONE ×2 (08:25→16:56)
[2020-07-29] MEDS: hydrOXYzine PAMOATE 25 MG CAPSULE (FP) PO PRN (09:13)
[2020-07-29] MEDS: NAPROXEN 500 MG TABLET PO PRN ×2 (09:13→16:56)
[2020-07-29] MEDS: ESCITALOPRAM OXALATE 20 MG TABLET PO SCH (09:13)
[2020-07-29] MEDS: QUEtiapine FUMARATE 100 MG TABLET (FP) PO SCH ×2 (09:13→21:05)
[2020-07-29] MEDS: PRENATAL VITAMINS W/ FOLIC ACID TABLET (FP) PO SCH (09:13)
[2020-07-29] MEDS: BENZOCAINE 20 % GEL TUBE MM PRN ×2 (12:44→21:09)
[2020-07-29] MEDS: GABAPENTIN 400 MG CAPSULE PO PRN (12:58)
[2020-07-29] MEDS ORDERED: MIRTAZAPINE 15 MG TABLET (FP) ONE (19:07)
[2020-07-29] MEDS: THIAMINE HCL 100 MG TABLET (FP) PO SCH (21:05)
[2020-07-29] MEDS: MELATONIN 5 MG TABLETS PO SCH (21:06)
[2020-07-29] MEDS: MIRTAZAPINE 30 MG TABLET PO SCH (21:06)
[2020-07-29] MEDS: OLANZapine 10 MG TABLET PO SCH (21:06)
[2020-07-29] MEDS: diphenhydrAMINE HCL 25 MG CAPSULE (FP) PO PRN (21:07)
[2020-07-30] MEDS ORDERED: METHADONE HCL 10 MG TABLET ONE (03:34)
[2020-07-30] MEDS ORDERED: METHADONE HCL 40 MG DISPERSABLE TABLET ONE (03:35)
[2020-07-30] MEDS: ACETAMINOPHEN 325 MG TABLET (FP) PO PRN ×2 (06:29→12:56)
[2020-07-30] MEDS: METHADONE 120 MG, METHADONE 30 MG PO SCH (06:29)
[2020-07-30] MEDS: ESCITALOPRAM OXALATE 20 MG TABLET PO SCH (09:50)
[2020-07-30] MEDS: PRENATAL VITAMINS W/ FOLIC ACID TABLET (FP) PO SCH (09:50)
[2020-07-30] MEDS: QUEtiapine FUMARATE 100 MG TABLET (FP) PO SCH ×2 (09:51→21:46)
[2020-07-30] MEDS: hydrOXYzine PAMOATE 25 MG CAPSULE (FP) PO PRN ×2 (09:52→17:11)
[2020-07-30] MEDS: NAPROXEN 500 MG TABLET PO PRN ×2 (09:52→17:13)
[2020-07-30] MEDS: BENZOCAINE 20 % GEL TUBE MM PRN (09:53)
[2020-07-30] MEDS: GABAPENTIN 400 MG CAPSULE PO PRN ×2 (14:55→21:48)
[2020-07-30] MEDS ORDERED: MIRTAZAPINE 15 MG TABLET (FP) ONE (20:39)
[2020-07-30] MEDS: OLANZapine 10 MG TABLET PO SCH (21:46)
[2020-07-30] MEDS: MELATONIN 5 MG TABLETS PO SCH (21:46)
[2020-07-30] MEDS: MIRTAZAPINE 30 MG TABLET PO SCH (21:46)
[2020-07-30] MEDS: THIAMINE HCL 100 MG TABLET (FP) PO SCH (21:47)
[2020-07-30] MEDS: diphenhydrAMINE HCL 25 MG CAPSULE (FP) PO PRN (21:48)
[2020-07-31] MEDS ORDERED: METHADONE HCL 10 MG TABLET ONE (06:19)
[2020-07-31] MEDS ORDERED: METHADONE HCL 40 MG DISPERSABLE TABLET ONE (06:19)
[2020-07-31] MEDS: ACETAMINOPHEN 325 MG TABLET (FP) PO PRN ×2 (06:39→15:47)
[2020-07-31] MEDS: METHADONE 120 MG, METHADONE 30 MG PO SCH (06:40)
[2020-07-31] MEDS: QUEtiapine FUMARATE 100 MG TABLET (FP) PO SCH ×2 (10:04→21:11)
[2020-07-31] MEDS: ESCITALOPRAM OXALATE 20 MG TABLET PO SCH (10:04)
[2020-07-31] MEDS: PRENATAL VITAMINS W/ FOLIC ACID TABLET (FP) PO SCH (10:04)
[2020-07-31] MEDS: hydrOXYzine PAMOATE 25 MG CAPSULE (FP) PO PRN ×2 (10:05→16:54)
[2020-07-31] MEDS ORDERED: PT OWN MED DRAWER 7, Y5N ONE ×2 (10:10→12:46)
[2020-07-31] MEDS: NAPROXEN 500 MG TABLET PO PRN (12:46)
[2020-07-31] MEDS ORDERED: MIRTAZAPINE 15 MG TABLET (FP) ONE (18:49)
[2020-07-31] MEDS: OLANZapine 10 MG TABLET PO SCH (21:11)
[2020-07-31] MEDS: MELATONIN 5 MG TABLETS PO SCH (21:11)
[2020-07-31] MEDS: MIRTAZAPINE 30 MG TABLET PO SCH (21:12)
[2020-07-31] MEDS: THIAMINE HCL 100 MG TABLET (FP) PO SCH (21:12)
[2020-07-31] MEDS: GABAPENTIN 400 MG CAPSULE PO PRN (21:13)
[2020-07-31] MEDS: diphenhydrAMINE HCL 25 MG CAPSULE (FP) PO PRN (21:13)
[2020-08-01] MEDS ORDERED: METHADONE HCL 10 MG TABLET ONE (03:20)
[2020-08-01] MEDS ORDERED: METHADONE HCL 40 MG DISPERSABLE TABLET ONE (03:20)
[2020-08-01] MEDS: ACETAMINOPHEN 325 MG TABLET (FP) PO PRN ×2 (03:37→17:28)
[2020-08-01] MEDS: METHADONE 120 MG, METHADONE 30 MG PO SCH (06:25)
[2020-08-01] MEDS: NAPROXEN 500 MG TABLET PO PRN (09:50)
[2020-08-01] MEDS: ESCITALOPRAM OXALATE 20 MG TABLET PO SCH (09:50)
[2020-08-01] MEDS ORDERED: PT OWN MED DRAWER 7, Y5N ONE (09:50)
[2020-08-01] MEDS: hydrOXYzine PAMOATE 25 MG CAPSULE (FP) PO PRN (09:50)
[2020-08-01] MEDS: BENZOCAINE 20 % GEL TUBE MM PRN ×2 (09:51→21:07)
[2020-08-01] MEDS: PRENATAL VITAMINS W/ FOLIC ACID TABLET (FP) PO SCH (09:51)
[2020-08-01] MEDS: QUEtiapine FUMARATE 100 MG TABLET (FP) PO SCH ×2 (09:51→21:06)
[2020-08-01] MEDS: NICOTINE POLACRILEX 2 MG GUM BUC PRN (13:15)
[2020-08-01] MEDS: GABAPENTIN 400 MG CAPSULE PO PRN (13:15)
[2020-08-01] MEDS ORDERED: MIRTAZAPINE 15 MG TABLET (FP) ONE (19:24)
[2020-08-01] MEDS: THIAMINE HCL 100 MG TABLET (FP) PO SCH (21:05)
[2020-08-01] MEDS: diphenhydrAMINE HCL 25 MG CAPSULE (FP) PO PRN (21:06)
[2020-08-01] MEDS: OLANZapine 10 MG TABLET PO SCH (21:06)
[2020-08-01] MEDS: MELATONIN 5 MG TABLETS PO SCH (21:07)
[2020-08-01] MEDS: MIRTAZAPINE 30 MG TABLET PO SCH (21:08)
[2020-08-02] MEDS ORDERED: METHADONE HCL 10 MG TABLET ONE (05:52)
[2020-08-02] MEDS ORDERED: METHADONE HCL 40 MG DISPERSABLE TABLET ONE (05:52)
[2020-08-02] MEDS: METHADONE 120 MG, METHADONE 30 MG PO SCH (06:35)
[2020-08-02] MEDS: ACETAMINOPHEN 325 MG TABLET (FP) PO PRN ×2 (06:36→19:31)
[2020-08-02] MEDS: GABAPENTIN 400 MG CAPSULE PO PRN (06:36)
[2020-08-02] MEDS ORDERED: PT OWN MED DRAWER 7, Y5N ONE ×3 (09:49→17:02)
[2020-08-02] MEDS: PRENATAL VITAMINS W/ FOLIC ACID TABLET (FP) PO SCH (09:49)
[2020-08-02] MEDS: ESCITALOPRAM OXALATE 20 MG TABLET PO SCH (09:49)
[2020-08-02] MEDS: QUEtiapine FUMARATE 100 MG TABLET (FP) PO SCH ×2 (09:49→21:34)
[2020-08-02] MEDS: NAPROXEN 500 MG TABLET PO PRN ×2 (09:50→17:03)
[2020-08-02] MEDS: hydrOXYzine PAMOATE 25 MG CAPSULE (FP) PO PRN (09:50)
[2020-08-02] MEDS: BENZOCAINE 20 % GEL TUBE MM PRN (10:58)
--- NOTE | 2020-08-02 16:22 | PN ---
Psychiatric Progress Note Vital Signs: Vital Signs Period Temp Pulse Resp BP Sys/Mason Pulse Ox Last 24 Hr 96.9 F 96 18 99/70 95-98 Date of Session: 08/02/20 Chief Complaint:: "I'm still not sleeping." HPI: Patient admitted to [facility] for cocaine and cannabis use. Consultation ordered due to patient c/o of insomnia. ROS: Patient is alert +oriented X3. Current Medications: Active Medications Generic Name Dose Route Start Last Admin Trade Name Freq PRN Reason Stop Dose Admin Acetaminophen 650 mg 07/10/20 18:19 08/02/20 06:36 Tylenol - PO 650 mg Q4H PRN Administration FEVER Al Hydroxide/Mg Hydroxide 30 ml 07/10/20 18:19 07/19/20 09:14 Mylanta Oral Suspension - PO 30 ml Q6H PRN Administration DYSPEPSIA Benzocaine 1 applic 07/11/20 09:40 08/02/20 10:58 Anbesol - MM 1 applic Q6H PRN Administration FOR TOOTHACHE Diphenhydramine HCl 75 mg 07/28/20 22:00 08/01/20 21:06 Benadryl - PO 75 mg HS PRN Administration INSOMNIA Escitalopram Oxalate 20 mg 07/11/20 14:15 08/02/20 09:49 Lexapro - PO 20 mg DAILY NATALIE Administration Gabapentin 800 mg 07/11/20 09:43 08/02/20 06:36 Neurontin - PO 800 mg TID PRN Administration PAIN Guaifenesin 10 ml 07/10/20 18:19 Robitussin - PO Q6H PRN COUGH Hydroxyzine Pamoate 75 mg 07/28/20 15:25 08/02/20 09:50 Vistaril - PO 75 mg Q6H PRN Administration ANXIETY Loperamide HCl 4 mg 07/10/20 18:19 Imodium - PO Q6H PRN DIARRHEA Magnesium Citrate 300 ml 07/10/20 18:19 Citroma - PO Q48H PRN CONSTIPATION Magnesium Hydroxide 30 ml 07/10/20 18:19 Milk Of Magnesia - PO DAILY PRN CONSTIPATION Melatonin 10 mg 07/11/20 09:39 08/01/20 21:07 Melatonin PO 10 mg HS NATALIE Administration Methadone HCl 120 mg/ 150 mg 07/31/20 06:00 08/02/20 06:35 Methadone HCl 30 mg PO 08/07/20 05:59 150 mg DAILY@0600 NATALIE Administration Mirtazapine 30 mg 07/11/20 22:00 08/01/20 21:08 Remeron - PO 30 mg HS NATALIE Administration Naproxen 500 mg 07/11/20 09:42 08/02/20 09:50 Naprosyn - PO 500 mg TID PRN Administration PAIN Nicotine Polacrilex 2 mg 07/31/20 15:36 08/01/20 13:15 Nicorette Gum - BUC 2 mg Q2H PRN Administration NICOTINE REPLACEMENT RX Olanzapine 30 mg 07/11/20 22:00 08/01/20 21:06 Zyprexa - PO 30 mg HS NATALIE Administration Ondansetron HCl 4 mg 07/19/20 11:08 Zofran Odt - SL Q6H PRN NAUSEA AND/OR VOMITING Multivit/Folic Acid/Iron 1 tab 07/11/20 10:00 08/02/20 09:49 Vitamins (Sjr) - PO 1 tab DAILY NATALIE Administration Pseudoephedrine/Triprolidine 1 combo 07/10/20 18:19 Actifed - PO TID PRN NASAL CONGESTION Quetiapine Fumarate 100 mg 07/16/20 14:00 08/02/20 09:49 Seroquel - PO 100 mg BID NATALIE Administration Suvorexant 10 mg 08/02/20 22:00 Belsomra PO 08/05/20 21:59 HS PRN INSOMNIA Thiamine HCl 100 mg 07/10/20 22:00 08/01/20 21:05 Vitamin B1 - PO 100 mg HS NATALIE Administration Medication(s) Change(s): Will add Belsomra 10mg HS PRN. Current Side Effect: No Lab tests ordered: No Lab tests reviewed: Yes Provider note:: Chart reviewed. Patient reports difficulty sleeping despite accepting several sleep aids (Benadryl 75mg HS + Melatonin 10mg HS). Will order Belsomra 10mg HS. Patient educated on the importance of proper sleep hyigene. Patient satisfied and receptive to feedback. Benefits and side effects discussed. Verbal consent given. Total face to face time:: 25 Mental Status Exam - Mental Status Exam Alert and Oriented to: Time, Place, Person Cognitive Function: Good Patient Appearance: Well Groomed Mood: Hopeful Affect: Appropriate Patient Behavior: Appropriate, Cooperative Speech Pattern: Appropriate Voice Loudness: Normal Thought Process: Intact, Goal Oriented Thought Disorder: Not Present Hallucinations: Denies Suicidal Ideation: Denies Homicidal Ideation: Denies Insight/Judgement: Poor Sleep: Poorly Appetite: Fair Muscle strength/Tone: Normal Gait/Station: Normal Psychiatric Treatment Plan - Problem List (1) Cannabis dependence Current Visit: Yes (2) Cocaine dependence Current Visit: Yes (3) Substance-induced sleep disorder Current Visit: Yes (4) Bipolar II disorder Current Visit: Yes (5) Opioid dependence on agonist therapy Current Visit: Yes
[2020-08-02] MEDS: MELATONIN 5 MG TABLETS PO SCH (21:33)
[2020-08-02] MEDS: THIAMINE HCL 100 MG TABLET (FP) PO SCH (21:33)
[2020-08-02] MEDS: OLANZapine 10 MG TABLET PO SCH (21:34)
[2020-08-02] MEDS: diphenhydrAMINE HCL 25 MG CAPSULE (FP) PO PRN (21:34)
[2020-08-02] MEDS: MIRTAZAPINE 30 MG TABLET PO SCH (21:35)
[2020-08-02] MEDS: SUVOREXANT 10 MG TABLET PO PRN (21:36)
[2020-08-03] MEDS ORDERED: METHADONE HCL 40 MG DISPERSABLE TABLET ONE (03:28)
[2020-08-03] MEDS ORDERED: METHADONE HCL 10 MG TABLET ONE (03:28)
[2020-08-03] MEDS: METHADONE 120 MG, METHADONE 30 MG PO SCH (06:40)
[2020-08-03] MEDS: ACETAMINOPHEN 325 MG TABLET (FP) PO PRN (06:41)
[2020-08-03] MEDS ORDERED: PT OWN MED DRAWER 7, Y5N ONE ×2 (06:43→16:29)
[2020-08-03] MEDS: BENZOCAINE 20 % GEL TUBE MM PRN ×2 (06:43→13:29)
[2020-08-03] MEDS: ESCITALOPRAM OXALATE 20 MG TABLET PO SCH (09:23)
[2020-08-03] MEDS: QUEtiapine FUMARATE 100 MG TABLET (FP) PO SCH ×2 (09:24→21:09)
[2020-08-03] MEDS: PRENATAL VITAMINS W/ FOLIC ACID TABLET (FP) PO SCH (09:24)
[2020-08-03] MEDS: hydrOXYzine PAMOATE 25 MG CAPSULE (FP) PO PRN (09:24)
[2020-08-03] MEDS: GABAPENTIN 400 MG CAPSULE PO PRN ×2 (13:29→21:12)
[2020-08-03] MEDS: NAPROXEN 500 MG TABLET PO PRN (16:29)
[2020-08-03] MEDS ORDERED: MIRTAZAPINE 15 MG TABLET (FP) ONE (19:26)
[2020-08-03] MEDS: diphenhydrAMINE HCL 25 MG CAPSULE (FP) PO PRN (21:09)
[2020-08-03] MEDS: THIAMINE HCL 100 MG TABLET (FP) PO SCH (21:09)
[2020-08-03] MEDS: MIRTAZAPINE 30 MG TABLET PO SCH (21:10)
[2020-08-03] MEDS: OLANZapine 10 MG TABLET PO SCH (21:10)
[2020-08-03] MEDS: MELATONIN 5 MG TABLETS PO SCH (21:10)
[2020-08-03] MEDS: SUVOREXANT 10 MG TABLET PO PRN (21:10)
[2020-08-04] MEDS ORDERED: METHADONE HCL 10 MG TABLET ONE (03:50)
[2020-08-04] MEDS ORDERED: METHADONE HCL 40 MG DISPERSABLE TABLET ONE (03:51)
[2020-08-04] MEDS: ACETAMINOPHEN 325 MG TABLET (FP) PO PRN ×2 (06:39→18:28)
[2020-08-04] MEDS: METHADONE 120 MG, METHADONE 30 MG PO SCH (06:39)
[2020-08-04] MEDS: ESCITALOPRAM OXALATE 20 MG TABLET PO SCH (09:58)
[2020-08-04] MEDS: QUEtiapine FUMARATE 100 MG TABLET (FP) PO SCH ×2 (09:58→21:19)
[2020-08-04] MEDS: PRENATAL VITAMINS W/ FOLIC ACID TABLET (FP) PO SCH (09:58)
[2020-08-04] MEDS: hydrOXYzine PAMOATE 25 MG CAPSULE (FP) PO PRN (10:00)
[2020-08-04] MEDS: NAPROXEN 500 MG TABLET PO PRN (10:01)
[2020-08-04] MEDS ORDERED: MIRTAZAPINE 15 MG TABLET (FP) ONE (19:20)
[2020-08-04] MEDS: THIAMINE HCL 100 MG TABLET (FP) PO SCH (21:19)
[2020-08-04] MEDS: diphenhydrAMINE HCL 25 MG CAPSULE (FP) PO PRN (21:19)
[2020-08-04] MEDS: MELATONIN 5 MG TABLETS PO SCH (21:19)
[2020-08-04] MEDS: MIRTAZAPINE 30 MG TABLET PO SCH (21:20)
[2020-08-04] MEDS: OLANZapine 10 MG TABLET PO SCH (21:59)
[2020-08-05] MEDS ORDERED: METHADONE HCL 10 MG TABLET ONE (03:50)
[2020-08-05] MEDS ORDERED: METHADONE HCL 40 MG DISPERSABLE TABLET ONE (03:51)
[2020-08-05] MEDS: ACETAMINOPHEN 325 MG TABLET (FP) PO PRN ×2 (06:31→15:36)
[2020-08-05] MEDS: METHADONE 120 MG, METHADONE 30 MG PO SCH (06:31)
[2020-08-05] MEDS: ESCITALOPRAM OXALATE 20 MG TABLET PO SCH (10:16)
[2020-08-05] MEDS: PRENATAL VITAMINS W/ FOLIC ACID TABLET (FP) PO SCH (10:16)
[2020-08-05] MEDS: QUEtiapine FUMARATE 100 MG TABLET (FP) PO SCH ×2 (10:16→21:31)
[2020-08-05] MEDS: hydrOXYzine PAMOATE 25 MG CAPSULE (FP) PO PRN (10:18)
[2020-08-05] MEDS: NAPROXEN 500 MG TABLET PO PRN ×2 (10:19→17:11)
[2020-08-05] MEDS: NICOTINE POLACRILEX 2 MG GUM BUC PRN (10:21)
[2020-08-05] MEDS ORDERED: MIRTAZAPINE 15 MG TABLET (FP) ONE (20:41)
[2020-08-05] MEDS: OLANZapine 10 MG TABLET PO SCH (21:30)
[2020-08-05] MEDS: MIRTAZAPINE 30 MG TABLET PO SCH (21:31)
[2020-08-05] MEDS: MELATONIN 5 MG TABLETS PO SCH (21:31)
[2020-08-05] MEDS: THIAMINE HCL 100 MG TABLET (FP) PO SCH (21:31)
[2020-08-05] MEDS: SUVOREXANT 10 MG TABLET PO PRN (21:33)
[2020-08-05] MEDS: GABAPENTIN 400 MG CAPSULE PO PRN (22:35)
[2020-08-06] MEDS ORDERED: METHADONE HCL 40 MG DISPERSABLE TABLET ONE (05:42)
[2020-08-06] MEDS ORDERED: METHADONE HCL 10 MG TABLET ONE (05:42)
[2020-08-06] MEDS: ACETAMINOPHEN 325 MG TABLET (FP) PO PRN ×2 (06:10→16:54)
[2020-08-06] MEDS: METHADONE 120 MG, METHADONE 30 MG PO SCH (06:11)
[2020-08-06] MEDS: PRENATAL VITAMINS W/ FOLIC ACID TABLET (FP) PO SCH (10:00)
[2020-08-06] MEDS: ESCITALOPRAM OXALATE 20 MG TABLET PO SCH (10:00)
[2020-08-06] MEDS: QUEtiapine FUMARATE 100 MG TABLET (FP) PO SCH ×2 (10:01→21:24)
[2020-08-06] MEDS: NAPROXEN 500 MG TABLET PO PRN (10:01)
[2020-08-06] MEDS: hydrOXYzine PAMOATE 25 MG CAPSULE (FP) PO PRN (10:02)
[2020-08-06] MEDS ORDERED: MIRTAZAPINE 15 MG TABLET (FP) ONE (19:14)
[2020-08-06] MEDS: OLANZapine 10 MG TABLET PO SCH (21:24)
[2020-08-06] MEDS: SUVOREXANT 10 MG TABLET PO PRN (21:24)
[2020-08-06] MEDS: GABAPENTIN 400 MG CAPSULE PO PRN (21:24)
[2020-08-06] MEDS: diphenhydrAMINE HCL 25 MG CAPSULE (FP) PO PRN (21:24)
[2020-08-06] MEDS: MIRTAZAPINE 30 MG TABLET PO SCH (21:24)
[2020-08-06] MEDS: MELATONIN 5 MG TABLETS PO SCH (21:25)
[2020-08-06] MEDS: THIAMINE HCL 100 MG TABLET (FP) PO SCH (21:25)
[2020-08-07] MEDS ORDERED: METHADONE 120 MG, METHADONE 30 MG PO SCH (06:00)
[2020-08-07] MEDS ORDERED: METHADONE HCL 10 MG TABLET ONE (06:22)
[2020-08-07] MEDS ORDERED: METHADONE HCL 40 MG DISPERSABLE TABLET ONE (06:22)
[2020-08-07] MEDS: ACETAMINOPHEN 325 MG TABLET (FP) PO PRN (06:37)
[2020-08-07] MEDS: BENZOCAINE 20 % GEL TUBE MM PRN (07:08)
[2020-08-07 07:12] VITALS: BP 99/68; PULSE 95; TEMP 97.8
[2020-08-07] MEDS: ESCITALOPRAM OXALATE 20 MG TABLET PO SCH (09:03)
[2020-08-07] MEDS: PRENATAL VITAMINS W/ FOLIC ACID TABLET (FP) PO SCH (09:03)
[2020-08-07] MEDS: QUEtiapine FUMARATE 100 MG TABLET (FP) PO SCH (09:03)
[2020-08-07] MEDS: hydrOXYzine PAMOATE 25 MG CAPSULE (FP) PO PRN (09:06)
--- NOTE | 2020-08-07 09:18 | DS ---
[facility] Rehab Discharge Summary - [facility] Rehab Discharge Summary Admission Date: 07/10/20 Discharge Date: 08/07/20 - History Present History: Cannabis dependence, Cocaine dependence, MMTP Pertinent Past History: Sickle Cell Anemia Chronic back Pain Bipolar Disorder - Discharge Physical Exam Vital Signs: Vital Signs Temperature 97.8 F 08/07/20 07:11 Pulse Rate 95 H 08/07/20 07:11 Respiratory Rate 18 08/07/20 07:11 Blood Pressure 99/68 08/07/20 07:11 O2 Sat by Pulse Oximetry (%) 100 08/07/20 07:11 PE General Appearance: 29 y/o female, alert o x 3, in no apparent Distress, slightly anxious but ready to f/u with the next level of care HEENTM: EOMI, Hearing grossly Normal, Normocephalic, Normal Voice Respiratory: Lungs Clear to a/p, Normal Breath Sounds Neck: Supple,Trachea in midline Cardiology: Regular Rhythm, Regular Rate, S1, S2 Abdominal: +bs, Protuberent, nt Musculoskeletal: Steady gait Extremities: Full Active Range of Motion,all limbs, Non-Tender, skin- warm,no edema Pertinent Admission Physical Exam Findings: Laboratory Tests 07/10/20 07/10/20 07/11/20 16:10 17:33 07:50 WBC 6.6 RBC 4.80 Hgb 9.2 L Hct 30.5 L MCV 63.4 L MCH 19.2 L MCHC 30.3 L RDW 21.9 H Plt Count 380 MPV 9.0 Sickle Cell Screen Negative Sodium Potassium Chloride Carbon Dioxide Anion Gap BUN Creatinine Est GFR (CKD-EPI)AfAm Est GFR (CKD-EPI)NonAf POC Glucometer Random Glucose Calcium Total Bilirubin AST ALT Alkaline Phosphatase Total Protein Albumin Urine Color Urine Appearance Urine pH Ur Specific [place] Urine Protein Urine Glucose (UA) Urine Ketones Urine Blood Urine Nitrite Urine Bilirubin Urine Urobilinogen Ur Leukocyte Esterase Urine WBC (Auto) Urine RBC (Auto) Urine Casts (Auto) U Epithel Cells (Auto) Urine Bacteria (Auto) POC Urine HCG, Qual Negative Syphilis Serology SARS-CoV-2 (PCR) Negative 07/11/20 07/11/20 07/11/20 07:50 07:50 09:45 WBC RBC Hgb Hct MCV MCH MCHC RDW Plt Count MPV Sickle Cell Screen Sodium 140 Potassium 4.8 Chloride 104 Carbon Dioxide 29 Anion Gap 7 L BUN 11.7 Creatinine 0.9 Est GFR (CKD-EPI)AfAm 98.75 Est GFR (CKD-EPI)NonAf 85.20 POC Glucometer Random Glucose 160 H Calcium 9.1 Total Bilirubin 0.4 AST 22 ALT 15 Alkaline Phosphatase 64 Total Protein 7.3 Albumin 3.4 Urine Color Yellow Urine Appearance Clear Urine pH 7.0 Ur Specific [place] 1.012 Urine Protein Negative Urine Glucose (UA) Negative Urine Ketones Negative Urine Blood Negative Urine Nitrite Negative Urine Bilirubin Negative Urine Urobilinogen 0.2 Ur Leukocyte Esterase 1+ H Urine WBC (Auto) 15 Urine RBC (Auto) 1 Urine Casts (Auto) 1 U Epithel Cells (Auto) >36 Urine Bacteria (Auto) 814 POC Urine HCG, Qual Syphilis Serology Non-reactive SARS-CoV-2 (PCR) 07/13/20 06:22 WBC RBC Hgb Hct MCV MCH MCHC RDW Plt Count MPV Sickle Cell Screen Sodium Potassium Chloride Carbon Dioxide Anion Gap BUN Creatinine Est GFR (CKD-EPI)AfAm Est GFR (CKD-EPI)NonAf POC Glucometer 90 Random Glucose Calcium Total Bilirubin AST ALT Alkaline Phosphatase Total Protein Albumin Urine Color Urine Appearance Urine pH Ur Specific [place] Urine Protein Urine Glucose (UA) Urine Ketones Urine Blood Urine Nitrite Urine Bilirubin Urine Urobilinogen Ur Leukocyte Esterase Urine WBC (Auto) Urine RBC (Auto) Urine Casts (Auto) U Epithel Cells (Auto) Urine Bacteria (Auto) POC Urine HCG, Qual Syphilis Serology SARS-CoV-2 (PCR) - Treatment Discharge Condition: Discharge condition good, Rehabilitated safely, Responded well, Outpatient referral accepted Hospital Course: Pt is a 29 y/o female admitted to rehab and scheduled for discharge today. Pt accepted CD aftercare to [facility]. - Medication Discharge Medications: Ambulatory Orders Diphenhydramine [Benadryl -] 50 mg PO HS 07/10/20 Gabapentin 800 mg PO TID PRN 07/10/20 Naproxen [Naprosyn] 500 mg PO TID PRN 07/10/20 Olanzapine 30 mg PO HS 07/10/20 Quetiapine Fumarate [Seroquel -] 100 mg PO HS 07/10/20 Escitalopram Oxalate [Lexapro -] 20 mg PO DAILY #30 tablet 08/07/20 Mirtazapine [Remeron -] 30 mg PO HS #30 tablet 08/07/20 Olanzapine [Zyprexa] 30 mg PO HS #90 tablet 08/07/20 Quetiapine Fumarate [Seroquel -] 100 mg PO BID #60 tablet 08/07/20 - Medication-Assisted Treatment (MAT) Medication-Assisted Treatment (MAT): No - Discharge Instructions Diet, activity, other medical instructions: Diet:Regular Activity: oob ad christ Other medical instructions:follow up with PCP for medical management as needed. - Diagnosis (1) Methadone maintenance therapy patient Status: Chronic (2) Cannabis dependence Status: Chronic (3) Nicotine use disorder Status: Chronic (4) Cocaine dependence Status: Chronic Qualifiers: Substance use status: uncomplicated Qualified Code(s): F14.20 - Cocaine dependence, uncomplicated (5) Sickle cell anemia Status: Chronic - Follow-up Referral Minutes to complete discharge: 25 - AMA Did Patient Leave Against Medical Advice: No
--- NOTE | 2020-08-07 10:03 | PN ---
[facility] Progress Note Note: Patient is discharged today. Scripts for 30 days supply of medications(Lexapro 20 mg/day, Remeron 30 mg/hs, Zyprexa 30 mg/hs, Seroquel 100 mg/bid) are electronically transmitted to [facility], [address] [place], [place] [address]
== END 2020-08-07 09:23 | disposition home or self-care (01) | DRG 772 ==
LOC: YASAS 15:29 → Y3W 18:12 → Y3E 07-18 10:28
PROVIDERS: ADMIT Allergy & Immunology; ATTEND Allergy & Immunology
PROC: HZ42ZZZ Group Counseling for Substance Abuse Treatment, Cognitive-Behavioral (ICD-10-PCS; principal; 2020-07-19)
DX: F11.20 Opioid dependence, uncomplicated (principal); F14.20 Cocaine dependence, uncomplicated; F12.20 Cannabis dependence, uncomplicated; F17.210 Nicotine dependence, cigarettes, uncomplicated; F19.282 Other psychoactive substance dependence with psychoactive substance-induced sleep disorder; F19.24 Other psychoactive substance dependence with psychoactive substance-induced mood disorder; F31.81 Bipolar II disorder; F41.9 Anxiety disorder, unspecified; D57.1 Sickle-cell disease without crisis; M51.36 Other intervertebral disc degeneration, lumbar region; R30.0 Dysuria; R35.0 Frequency of micturition; R33.8 Other retention of urine; Z62.810 Personal history of physical and sexual abuse in childhood; Z98.84 Bariatric surgery status; Z91.410 Personal history of adult physical and sexual abuse
CPT/HCPCS: 36415; 80053; 81003; 81025; 82962; 85027; 85660; 86780; 90732; G0009; U0003